=== PATIENT | female | born 1975 | race Two or more races ===

== ENCOUNTER 2017-01-19 17:14 | Emergency (ER) | payer MEDICAID ==
[2017-01-19 17:33] VITALS: BP 144/85
[2017-01-19 18:12] LABS: % BASOPHILS 1.3 % (0.0-2.0); % EOSINOPHILS 3.8 % (0.0-5.0); % LYMPHOCYTES 35.7 % (20.0-50.0); % MONOCYTES 10.3 % (2.0-10.0); % NEUTROPHILS 48.9 % (40.0-80.0); HEMATOCRIT 34.1 % (35.0-45.0); HEMOGLOBIN 11.3 gm/dL (11.7-15.5); MEAN CELL VOLUME 82.8 fl (81-100); MEAN CORPUSCULAR HEMOGLOBIN 27.5 pg (27.0-31.0); MEAN CORPUSCULAR HGB CONC 33.3 pg (28.0-36.0); MEAN PLATELET VOLUME 7.7 fl; NEUTROPHILE ABSOLUTE 3.1 Th/cmm (1.8-8.0); PLATELET COUNT 269 Th/cmm (150-400); RED BLOOD COUNT 4.11 Mil/cmm (3.80-5.10); RED CELL DISTRIBUTION WIDTH 14.9 % (11.5-20.0); WHITE BLOOD COUNT 6.2 Th/cmm (4.8-10.8)
[2017-01-19 18:29] LABS: ALB/GLOB RATIO 1.6 (1.0-1.8); ALKALINE PHOSPHATASE 47 U/L (34-104); ANION GAP 7.7 (7.0-16.0); BILIRUBIN,TOTAL 0.2 mg/dL (0.3-1.0); BUN - UREA NITROGEN 11 mg/dL (7-25); BUN/CREATININE RATIO 18.3; CALCIUM SERUM 9.7 mg/dL (8.6-10.3); CARBON DIOXIDE 29.2 mEq/L (21.0-31.0); CHLORIDE 104 mEq/L (98-107); CHOLESTEROL 183 mg/dL (<200); CREATININE - SERUM 0.6 mg/dL (0.6-1.2); GLUCOSE 173 mg/dL (70-105); POTASSIUM SERUM 3.9 mEq/L (3.5-5.1); SGOT 16 U/L (13-39); SGPT/ALT 18 U/L (7-52); SODIUM SERUM 137 mEq/L (136-145); TRIGLYCERIDES 164 mg/dL (<150)
[2017-01-19 18:38] LABS: INR 0.91 (0.5-1.4); PROTHROMBIN TIME (TEST) 9.5 SECONDS (9.5-11.5)
[2017-01-19 18:42] LABS: URINE BACTERIA MODERATE /hpf (NONE SEEN); URINE BILIRUBIN NEGATIVE (NEGATIVE); URINE BLOOD NEGATIVE (NEGATIVE); URINE COLOR YELLOW; URINE EPITHELIAL CELLS MODERATE /lpf (FEW); URINE GLUCOSE (UA) NEGATIVE (NEGATIVE); URINE KETONE NEGATIVE (NEGATIVE); URINE PH 7.5; URINE PROTEIN TRACE mg/dL (NEGATIVE); URINE RBC NONE SEEN /hpf (0-5); URINE UROBILINOGEN 0.2 E.U./dL (0.2 - 1.0); URINE WBC 0-2 /hpf (0-5)
[2017-01-19 18:43] LABS: URINE AMORPHOUS SEDIMENT MANY PHOSPHATES (NONE SEEN)
--- NOTE | 2017-01-19 19:44 | ED Physician Chart ---
Chief Complaint/HPI - Patient Information Date Seen:: 01/19/17 Time Seen:: 17:44 Chief Complaint:: headache History of Present Illness:: THIS IS A 41 YR OLD FEMALE WITH A HEADACHE ON THE LEFT POSTERIOR AREA AND SOME NECK TENDERNESS WITH RIGHT ARM RADIATING PAIN. SHE DENIES ANY OLD OR NEW TRAUMA. SHE ALSO STATES THAT SHE DYED HER HAIR. SHE DENIES HAVING ANY URI SYMPTOMS. SHE DENIES FEVER BUT ADMITS TO NAUSEA. SHE HAS HAD HEADACHES IN PAST BUT NOT LIKE THIS ONE. Allergies:: Allergies Allergy/AdvReac Type Severity Reaction Status Date / Time No Known Allergies Allergy Verified 05/10/16 19:27 Vitals:: Vital Signs - 8 hr 01/19/17 01/19/17 17:33 17:34 Temp 98.3 F HR 87 RR 16 BP 144/85 144/85 O2 Sat % 98 Historian:: Patient Review:: Nurse's Note Reviewed Review of Systems - Review of Systems General/Constitutional: No fever, No chills, No weight loss, No weakness, No diaphoresis, No edema, No loss of appetite Skin: No skin lesions, No rash, No bruising Head: Headache, No light-headedness Eyes: No loss of vision, No pain, No diplopia ENT: No earache, No nasal drainage, No sore throat, No tinnitus Neck: No neck pain, No swelling, No thyromegaly, No stiffness, Mass noted ( RIGHT POSTERIOR SCALP IN THE OCCIPITAL AREA.) Cardio Vascular: No chest pain, No palpitations, No PND, No orthopnea, No edema Pulmonary: No SOB, No cough, No sputum, No wheezing GI: No nausea, No vomiting, No diarrhea, No pain, No melena, No hematochezia, No constipation, No hematemesis G/U: No dysuria, No frequency, No hematuria Musculoskeletal: No bone or joint pain, No back pain, No muscle pain Endocrine: No polyuria, No polydipsia Psychiatric: No prior psych history, No depression, No anxiety, No suicidal ideation Hematopoietic: No bruising, No lymphadenopathy Allergic/Immuno: No urticaria, No angioedema Neurological: No syncope, No focal symptoms, No weakness, No paresthesia, No headache, No seizure, No dizziness, No confusion, No vertigo Past Medical History - Past Medical History Obtainable: Yes Past Medical History: DM, Asthma/COPD Family History: None Social History: Non Smoker, No Alcohol, No Drug Use Surgical History: Psychiatricy History: None Medication: Reviewed Family Medical History - Family Member Mother History Unknown: Yes Ethnicity: Living Status: Still Living Hx Family Cancer: No Hx Family Congestive Heart Failure: No Hx Family Hypertension: No Hx Family Stroke: No Hx Family Diabetes: No Hx Family Dementia: No Father History Unknown: Yes Ethnicity: Hx Family Cancer: Yes Physical Exam - Physical Examination General/Constitutional: Awake, Well-developed, well-nourished, Alert, No distress, GCS 15, Non-toxic appearing, Ambulatory Head: Atraumatic Other Head comments:: THERE IS TENDERNESS OF THE RIGHT OCCIPITAL AREA OF THE SCALP WITH ENLARGED TENDER LYMPH NODES THAT EXTENDS DOWN THE RIGHT POSTERIOR NECK AREA. Eyes: Lids, conjuctiva normal, PERRL, EOMI Skin: Nl inspection, No rash, No skin lesions, No ecchymosis, Well hydrated, No lymphadenopathy ENMT: External ears, nose nl, Nasal exam nl, Lips, teeth, gums nl Neck: Nontender, Full ROM w/o pain, No JVD, No nuchal rigidity, No bruit, No mass, No stridor Respiratory: Nl effort/Exclusion, Clear to Auscultation, No Wheeze/Rhonchi/Rales Cardio Vascular: RRR, No murmur, gallop, rubs, NL S1 S2 GI: No tenderness/rebounding/guarding, No organomegaly, No hernia, Normal BS's, Nondistended, No mass/bruits, No McBurney tenderness : No CVA tenderness Extremities: No tenderness or effusion, Full ROM, normal strength in all extremities, No edema, Normal digits & nails Neuro/Psych: Alert/oriented, DTR's symmetric, Normal sensory exam, Normal motor strength, Judgement/insight normal, Mood normal, Normal gait, No focal deficits Misc: normal gait, Normal back, No paraspinal tenderness Labs/Radiology/EKG Results - Lab Results Results: Laboratory Tests 01/19/17 01/19/17 01/19/17 17:53 17:53 17:53 WBC 6.2 RBC 4.11 Hgb 11.3 L Hct 34.1 L MCV 82.8 MCH 27.5 MCHC Differential 33.3 RDW 14.9 Plt Count 269 MPV 7.7 Neutrophils % 48.9 Lymphocytes % 35.7 Monocytes % 10.3 H Eosinophils % 3.8 Basophils % 1.3 PT 9.5 INR 0.91 Sodium Potassium Chloride Carbon Dioxide Anion Gap BUN Creatinine Est GFR ( Amer) Est GFR (Non-Af Amer) BUN/Creatinine Ratio Glucose Calcium Total Bilirubin AST ALT Alkaline Phosphatase Troponin I Total Protein Albumin Globulin Albumin/Globulin Ratio Triglycerides 164 H Cholesterol 183 LDL Cholesterol Direct 118 HDL Cholesterol 51 TSH Urine Source Urine Color Urine Clarity Urine pH Ur Specific [place] Urine Protein Urine Glucose (UA) Urine Ketones Urine Blood Urine Nitrate Urine Bilirubin Urine Urobilinogen Ur Leukocyte Esterase Urine RBC Urine WBC Ur Epithelial Cells Amorphous Sediment Urine Bacteria Urine Test 01/19/17 01/19/17 01/19/17 17:53 17:53 17:53 WBC RBC Hgb Hct MCV MCH MCHC Differential RDW Plt Count MPV Neutrophils % Lymphocytes % Monocytes % Eosinophils % Basophils % PT INR Sodium 137 Potassium 3.9 Chloride 104 Carbon Dioxide 29.2 Anion Gap 7.7 BUN 11 Creatinine 0.6 Est GFR ( Amer) > 60.0 Est GFR (Non-Af Amer) > 60.0 BUN/Creatinine Ratio 18.3 Glucose 173 H Calcium 9.7 Total Bilirubin 0.2 L AST 16 ALT 18 Alkaline Phosphatase 47 Troponin I < 0.01 L Total Protein 6.5 Albumin 4.0 Globulin 2.5 Albumin/Globulin Ratio 1.6 Triglycerides Cholesterol LDL Cholesterol Direct HDL Cholesterol TSH 0.82 Urine Source Urine Color Urine Clarity Urine pH Ur Specific [place] Urine Protein Urine Glucose (UA) Urine Ketones Urine Blood Urine Nitrate Urine Bilirubin Urine Urobilinogen Ur Leukocyte Esterase Urine RBC Urine WBC Ur Epithelial Cells Amorphous Sediment Urine Bacteria Urine Test 01/19/17 01/19/17 18:20 18:20 WBC RBC Hgb Hct MCV MCH MCHC Differential RDW Plt Count MPV Neutrophils % Lymphocytes % Monocytes % Eosinophils % Basophils % PT INR Sodium Potassium Chloride Carbon Dioxide Anion Gap BUN Creatinine Est GFR ( Amer) Est GFR (Non-Af Amer) BUN/Creatinine Ratio Glucose Calcium Total Bilirubin AST ALT Alkaline Phosphatase Troponin I Total Protein Albumin Globulin Albumin/Globulin Ratio Triglycerides Cholesterol LDL Cholesterol Direct HDL Cholesterol TSH Urine Source CLEAN C Urine Color YELLOW Urine Clarity SLIGHT HAZY Urine pH 7.5 Ur Specific [place] 1.020 Urine Protein TRACE Urine Glucose (UA) NEGATIVE Urine Ketones NEGATIVE Urine Blood NEGATIVE Urine Nitrate NEGATIVE Urine Bilirubin NEGATIVE Urine Urobilinogen 0.2 Ur Leukocyte Esterase NEGATIVE Urine RBC NONE SEEN Urine WBC 0-2 Ur Epithelial Cells MODERATE Amorphous Sediment MANY PHOSPHATES Urine Bacteria MODERATE Urine Test NEGATIVE - Radiology Results Results: CT SCAN OF THE HEAD = NAD CT SCAN OF THE NECK = NAD ED Septic Shock - . Is Septic Shock (SBP<90, OR Lactate>4 mmol\L) present?: No - <6hrs of presentation: Vital Signs: Vital Signs - 8 hr 01/19/17 01/19/17 17:33 17:34 Temp 98.3 F HR 87 RR 16 BP 144/85 144/85 O2 Sat % 98 Reassessment (Disposition) - Reassessment Reassessment Condition:: Improved - Diagnosis Diagnosis:: HEADACHE SCALP ADENOPATHY CERVICAL ARTHRITIS - Aftercare/Follow up Instructions Aftercare/Follow-Up Instructions:: Counseled pt regarding lab results/diagnosis & need follow up, Refer to Discharge Instructions, Counseled pt & family regarding lab results/diagnosis & need follow up - Patient Disposition Discharge/Transfer:: Home Condition at Disposition:: Improved ED Discharge Plan - Patient Disposition Admit/Discharge/Transfer: PT DISCHARGED HOME Condition at Disposition: Improved
--- NOTE | 2017-01-20 10:45 | Diagnostic Imaging Report ---
CT scan of the brain without contrast History: Headache Total DLP equals 560 CTDI equals 33.5 Axial sections were obtained from the base of the skull to the vertex. There is a normal ventricular system size. No focal parenchymal lesions are seen. No evidence of any mass effect or shift of midline structures. No extra-axial masses or abnormal fluid collections. Impression: Negative examination
--- NOTE | 2017-01-20 10:51 | Diagnostic Imaging Report ---
CT scan cervical spine HISTORY: Pain Total DLP equals 547 CTDI equals 28.9 Axial sections were obtained through the cervical spine. Additional sagittal and coronal reformatted images are provided. There is straightening of the cervical lordosis that may be associated with spasm. Degenerative spur formation noted about the endplates of C4-5 and C5-6. Spur formation results in a mild extradural indentation on the anterior spinal canal at C5-6. No acute abnormalities. No fractures. The prevertebral soft tissues appear normal. IMPRESSION: 1. No acute abnormalities 2. Degenerative changes most pronounced at C5-6
== END 2017-01-19 20:50 | disposition home or self-care (01) ==
LOC: ER 17:14
DX: M46.92 Unspecified inflammatory spondylopathy, cervical region (principal); R51 Headache; R59.9 Enlarged lymph nodes, unspecified; E11.9 Type 2 diabetes mellitus without complications; J44.9 Chronic obstructive pulmonary disease, unspecified; J45.909 Unspecified asthma, uncomplicated
CPT/HCPCS: 36415-UA; 70450-TC; 72125-TC; 80053-TC; 80061-TC; 81001-TC; 81025-TC; 84443-TC; 84484-TC; 85025-TC; 85610-TC; 86592-TC

== ENCOUNTER 2017-05-11 01:28 | Emergency (ER) | payer MEDICAID ==
--- NOTE | 2017-05-11 02:17 | ED Physician Chart ---
Chief Complaint/HPI - Patient Information Date Seen:: 05/11/17 Time Seen:: 02:00 Chief Complaint:: headache History of Present Illness:: Yesterday at 3 PM this patient developed a right-sided headache which became diffuse. She has photophobia. Headache is gradually increasing in severity. Patient has a history of headaches which are sometimes right-sided and sometimes left-sided. Allergies:: Allergies Allergy/AdvReac Type Severity Reaction Status Date / Time No Known Allergies Allergy Verified 05/10/16 19:27 Vitals:: Vital Signs - 8 hr 05/11/17 01:40 Temp 98.0 F HR 80 RR 20 BP 141/89 O2 Sat % 97 Historian:: Patient, Family Member Review:: Nurse's Note Reviewed Review of Systems - Review of Systems General/Constitutional: No fever, No chills Skin: No skin lesions Head: Headache Eyes: Other (photophobia) ENT: No earache Neck: No neck pain, No swelling Cardio Vascular: No chest pain, No palpitations, No PND Pulmonary: No SOB, No cough GI: No nausea, No vomiting G/U: No dysuria Musculoskeletal: No bone or joint pain Endocrine: No polyuria Psychiatric: No prior psych history Hematopoietic: No lymphadenopathy Allergic/Immuno: No urticaria Neurological: No syncope, No focal symptoms Past Medical History - Past Medical History Past Medical History: DM, Asthma/COPD Family History: None Social History: Non Smoker, No Alcohol Surgical History: Psychiatricy History: None Medication: Reviewed Family Medical History - Family Member Mother History Unknown: Yes Ethnicity: Living Status: Still Living Hx Family Cancer: No Hx Family Congestive Heart Failure: No Hx Family Hypertension: No Hx Family Stroke: No Hx Family Diabetes: No Hx Family Dementia: No Father History Unknown: Yes Ethnicity: Hx Family Cancer: Yes Physical Exam - Physical Examination General/Constitutional: Awake, Well-developed, well-nourished, Alert, No distress Head: Atraumatic Eyes: Lids, conjuctiva normal, PERRL Skin: Nl inspection, No rash, No skin lesions, No ecchymosis ENMT: External ears, nose nl, Nasal exam nl, Lips, teeth, gums nl Neck: No nuchal rigidity Respiratory: Nl effort/Exclusion, Clear to Auscultation Cardio Vascular: RRR GI: No tenderness/rebounding/guarding, No organomegaly, No hernia : No CVA tenderness Neuro/Psych: Judgement/insight normal, No focal deficits Assessment - Assessment General Assessment: Headache is not improved at O240. ED Septic Shock - . Is Septic Shock (SBP<90, OR Lactate>4 mmol\L) present?: No - <6hrs of presentation: Vital Signs: Vital Signs - 8 hr 05/11/17 01:40 Temp 98.0 F HR 80 RR 20 BP 141/89 O2 Sat % 97 Reassessment (Disposition) - Reassessment Reassessment:: Elbow 320 patient's vomiting probably from the Dilaudid Reassessment Condition:: Improved - Diagnosis Diagnosis:: Migraine headache - Patient Disposition Discharge/Transfer:: Home Condition at Disposition:: Improved
[2017-05-11] MEDS ORDERED: HYDROmorphone 2 mg/mL 1mL Vial IM STA (02:42)
[2017-05-11] MEDS ORDERED: HYDROmorphone 2 mg/mL 1mL Vial ONE (02:54)
[2017-05-11] MEDS ORDERED: IOHEXOL 300MG/ML 100 ML VIAL ONE (11:38)
[2017-05-11] MEDS ORDERED: Morphine Sulfate 2 mg/mL 1mL Syr ONE (14:03)
== END 2017-05-11 03:45 | disposition home or self-care (01) ==
LOC: ER 01:28
DX: G43.909 Migraine, unspecified, not intractable, without status migrainosus (principal); E11.9 Type 2 diabetes mellitus without complications; J44.9 Chronic obstructive pulmonary disease, unspecified; J45.909 Unspecified asthma, uncomplicated
CPT/HCPCS: 99283; 96372; Q0162; J2270; J1170; J7030; Q9967; Z7502

== ENCOUNTER 2017-05-11 10:17 | Inpatient (IN) | payer MEDICAID ==
--- NOTE | 2017-05-11 11:07 | ED Physician Chart ---
Chief Complaint/HPI - Patient Information Date Seen:: 05/11/17 Time Seen:: 10:40 Chief Complaint:: HEADACHE History of Present Illness:: THIS IS A 41 YO FEMALE WHO PRESENTS WITH A HEADACHE THAT STARTED YESTERDAY ASSOCIATED WITH VOMITING. THIS PATIENT STATES THAT SHE HAS SOME RIGHT LOWER QUADRANT ABDOMINAL PAIN ASSOCIATED WITH NAUSEA AND VOMITING YESTERDAY. Allergies:: Allergies Allergy/AdvReac Type Severity Reaction Status Date / Time No Known Allergies Allergy Verified 05/10/16 19:27 Vitals:: Vital Signs - 8 hr 05/11/17 10:29 Temp 98.1 F HR 83 RR 16 BP 157/104 O2 Sat % 96 Historian:: Patient, Family Member (DAUGHTER) Review:: Nurse's Note Reviewed, Old Chart Reviewed Family Medical History - Family Member Mother History Unknown: Yes Ethnicity: Living Status: Still Living Hx Family Cancer: No Hx Family Coronary Artery Disease: No Hx Family Congestive Heart Failure: No Hx Family Hypertension: No Hx Family Stroke: No Hx Family Diabetes: No Hx Family Seizures: No Hx Family Dementia: No Hx Family AIDS: No Hx Family COPD: No Father History Unknown: Yes Ethnicity: Hx Family Cancer: No Hx Family Coronary Artery Disease: No Hx Family Congestive Heart Failure: No Hx Family Hypertension: No Hx Family Stroke: No Hx Family Seizures: No Hx Family Dementia: No Hx Family COPD: No Labs/Radiology/EKG Results - Lab Results Results: Abnormal Lab Results 05/11/17 05/11/17 05/11/17 10:45 10:45 11:00 WBC RBC Hgb Hct MCV MCH MCHC Differential RDW Plt Count MPV Neutrophils % Lymphocytes % Monocytes % Eosinophils % Basophils % PT 9.7 INR 0.93 PTT (Actin FS) 22.5 L Sodium Potassium Chloride Carbon Dioxide Anion Gap BUN Creatinine Est GFR ( Amer) Est GFR (Non-Af Amer) BUN/Creatinine Ratio Glucose Hemoglobin A1c % Calcium Total Bilirubin AST ALT Alkaline Phosphatase Troponin I Total Protein Albumin Globulin Albumin/Globulin Ratio Triglycerides Cholesterol LDL Cholesterol Direct HDL Cholesterol TSH Urine Source CLEAN C Urine Color YELLOW Urine Clarity SL. CLOUDY Urine pH 7.0 Ur Specific [place] 1.020 Urine Protein 100 H Urine Glucose (UA) >=1000 H Urine Ketones TRACE Urine Blood NEGATIVE Urine Nitrate NEGATIVE Urine Bilirubin NEGATIVE Urine Urobilinogen 0.2 Ur Leukocyte Esterase NEGATIVE Urine RBC 0-1 Urine WBC 0-2 Ur Epithelial Cells FEW Urine Bacteria OCCASIONAL Urine Test NEGATIVE 05/11/17 05/11/17 05/11/17 11:00 11:00 11:00 WBC 8.4 D RBC 4.35 Hgb 11.5 L Hct 35.1 MCV 80.7 L MCH 26.4 L MCHC Differential 32.7 RDW 15.1 Plt Count 308 MPV 7.8 Neutrophils % 71.3 Lymphocytes % 21.5 Monocytes % 5.9 Eosinophils % 0.6 Basophils % 0.7 PT INR PTT (Actin FS) Sodium 137 Potassium 3.9 Chloride 102 Carbon Dioxide 29.0 Anion Gap 9.9 BUN 13 Creatinine 0.6 Est GFR ( Amer) > 60.0 Est GFR (Non-Af Amer) > 60.0 BUN/Creatinine Ratio 21.7 Glucose 310 H Hemoglobin A1c % Calcium 9.7 Total Bilirubin 0.4 AST 14 ALT 16 Alkaline Phosphatase 58 Troponin I Total Protein 7.2 Albumin 4.3 Globulin 2.9 Albumin/Globulin Ratio 1.5 Triglycerides 100 Cholesterol 233 H LDL Cholesterol Direct 165 HDL Cholesterol 57 TSH Urine Source Urine Color Urine Clarity Urine pH Ur Specific [place] Urine Protein Urine Glucose (UA) Urine Ketones Urine Blood Urine Nitrate Urine Bilirubin Urine Urobilinogen Ur Leukocyte Esterase Urine RBC Urine WBC Ur Epithelial Cells Urine Bacteria Urine Test 05/11/17 05/11/17 05/11/17 11:00 11:00 11:00 WBC RBC Hgb Hct MCV MCH MCHC Differential RDW Plt Count MPV Neutrophils % Lymphocytes % Monocytes % Eosinophils % Basophils % PT INR PTT (Actin FS) Sodium Potassium Chloride Carbon Dioxide Anion Gap BUN Creatinine Est GFR ( Amer) Est GFR (Non-Af Amer) BUN/Creatinine Ratio Glucose Hemoglobin A1c % 9.8 H Calcium Total Bilirubin AST ALT Alkaline Phosphatase Troponin I 0.01 Total Protein Albumin Globulin Albumin/Globulin Ratio Triglycerides Cholesterol LDL Cholesterol Direct HDL Cholesterol TSH 0.56 Urine Source Urine Color Urine Clarity Urine pH Ur Specific [place] Urine Protein Urine Glucose (UA) Urine Ketones Urine Blood Urine Nitrate Urine Bilirubin Urine Urobilinogen Ur Leukocyte Esterase Urine RBC Urine WBC Ur Epithelial Cells Urine Bacteria Urine Test - Radiology Results Results: CT SCAN OF THE ABDOMEN = DIVERTICULOSIS, POSSIBLE EARLY APPENDICITIS. 6MM LESION OF THE LEFT LUNG, Assessment - Assessment General Assessment: HEADACHES ABDOMINAL PAIN DIABETES MELLITUS UNCONTROLLED ANEMIA LEFT LOWER LOBE LUNG LESION DIVERTICULOSIS ED Septic Shock - . Is Septic Shock (SBP<90, OR Lactate>4 mmol\L) present?: No - <6hrs of presentation: Vital Signs: Vital Signs - 8 hr 05/11/17 10:29 Temp 98.1 F HR 83 RR 16 BP 157/104 O2 Sat % 96 Reassessment (Disposition) - Reassessment Reassessment Condition:: Improved - Diagnosis Diagnosis:: ABDOMINAL PAIN DIABETES MELLITUS UNCONTROLLED HEADACHES DIVERTICULOSIS LEFT LOWER LOBE LUNG LESION ANEMIA - Patient Disposition Discharge/Transfer:: Acute Care w/in this hosp Admitted to:: Telemetry Admitting Medical Physician:: Gibran Kruse ED Discharge Plan - Patient Disposition Admit/Discharge/Transfer: Acute Care w/in this hosp Condition at Disposition: Guarded
[2017-05-11 11:08] LABS: URINE BILIRUBIN NEGATIVE (NEGATIVE); URINE BLOOD NEGATIVE (NEGATIVE); URINE GLUCOSE (UA) >=1000 mg/dL (NEGATIVE); URINE KETONE TRACE mg/dL (NEGATIVE); URINE PROTEIN 100 mg/dL (NEGATIVE); URINE UROBILINOGEN 0.2 E.U./dL (0.2 - 1.0)
[2017-05-11 11:09] LABS: URINE COLOR YELLOW
[2017-05-11 11:11] LABS: URINE BACTERIA OCCASIONAL /hpf (NONE SEEN); URINE EPITHELIAL CELLS FEW /lpf (FEW); URINE RBC 0-1 /hpf (0-5); URINE WBC 0-2 /hpf (0-5)
[2017-05-11 11:12] LABS: % BASOPHILS 0.7 % (0.0-2.0); % EOSINOPHILS 0.6 % (0.0-5.0); % LYMPHOCYTES 21.5 % (20.0-50.0); % MONOCYTES 5.9 % (2.0-10.0); % NEUTROPHILS 71.3 % (40.0-80.0); HEMATOCRIT 35.1 % (35.0-45.0); HEMOGLOBIN 11.5 gm/dL (11.7-15.5); MEAN CELL VOLUME 80.7 fl (81-100); MEAN CORPUSCULAR HEMOGLOBIN 26.4 pg (27.0-31.0); MEAN CORPUSCULAR HGB CONC 32.7 pg (28.0-36.0); MEAN PLATELET VOLUME 7.8 fl; NEUTROPHILE ABSOLUTE 5.9 Th/cmm (1.8-8.0); PLATELET COUNT 308 Th/cmm (150-400); RED BLOOD COUNT 4.35 Mil/cmm (3.80-5.10); RED CELL DISTRIBUTION WIDTH 15.1 % (11.5-20.0)
[2017-05-11 11:14] LABS: WHITE BLOOD COUNT 8.4 Th/cmm (4.8-10.8)
[2017-05-11 11:17] LABS: INR 0.93 (0.5-1.4); PROTHROMBIN TIME (TEST) 9.7 SECONDS (9.5-11.5)
[2017-05-11 11:20] LABS: ALB/GLOB RATIO 1.5 (1.0-1.8); ALKALINE PHOSPHATASE 58 U/L (34-104); ANION GAP 9.9 (7.0-16.0); BILIRUBIN,TOTAL 0.4 mg/dL (0.3-1.0); BUN - UREA NITROGEN 13 mg/dL (7-25); BUN/CREATININE RATIO 21.7; CALCIUM SERUM 9.7 mg/dL (8.6-10.3); CHLORIDE 102 mEq/L (98-107); CHOLESTEROL 233 mg/dL (<200); CREATININE - SERUM 0.6 mg/dL (0.6-1.2); GLUCOSE 310 mg/dL (70-105); POTASSIUM SERUM 3.9 mEq/L (3.5-5.1); SGOT 14 U/L (13-39); SGPT/ALT 16 U/L (7-52); SODIUM SERUM 137 mEq/L (136-145); TRIGLYCERIDES 100 mg/dL (<150)
--- NOTE | 2017-05-11 12:03 | Diagnostic Imaging Report ---
CHEST X-RAY: AP view INDICATION: Chest pain COMPARISON: None FINDINGS: Mild chronic changes are noted. There is no focal consolidation or pleural effusions The heart is normal in size. The osseous structures demonstrate no acute abnormalities. IMPRESSION: No focal airspace consolidation identified.
--- NOTE | 2017-05-11 12:21 | Diagnostic Imaging Report ---
Head CT without intravenous contrast Indication: Headache Comparison: 01/19/2017 Technique: Axial images were obtained from the vertex to the skull base without IV contrast. Coronal reconstructions were made. Total DLP: 635 [id number] FINDINGS: Images of the brain obtained without contrast demonstrate no acute hemorrhage. No mass lesions identified. The ventricles and basal cisterns are patent. The baez-white matter differentiation is preserved. There is no mass effect or midline shift. Bilateral basal ganglia calcifications are noted. No skull fractures identified. No soft tissue swelling. The paranasal sinuses are clear. IMPRESSION: No acute intracranial abnormality.
--- NOTE | 2017-05-11 12:28 | Diagnostic Imaging Report ---
CT abdomen and pelvis with intravenous contrast Indication: Right lower quadrant pain Comparison: None, Technique: Axial images were obtained from the lung bases to the bilateral proximal femurs with IV contrast. Coronal reconstructions were made. total DLP: 769, CTDI 15.3 FINDINGS: Atelectatic changes changes of the lung bases are noted with 6 mm opacity seen adjacent to the anterior aspect of the left lung base. There is fatty infiltration of the liver. No evidence of focal hepatic, splenic, or pancreatic gland lesions. Pancreatic gland atrophy is noted. Minimal haziness of the peripancreatic fat planes is noted. No evidence of hydronephrosis or focal renal lesions. Mildly prominent uterus is noted. There is a tubular structure along the left lower quadrant possibly representing hydrosalpinx. 1 cm low-density focus along the anterior aspect of the uterus is noted. Diverticulosis is noted without evidence of diverticulitis. The appendix is at the upper limits of normal in size. No evidence of significant surrounding inflammatory change. No evidence of free fluid or free air. Osseous structures demonstrate no acute abnormalities. IMPRESSION: The appendix is at the upper limits of normal in size. No evidence of significant surrounding inflammatory change. Very early acute appendicitis is considered less likely, but cannot be completely excluded in the appropriate clinical setting. Please correlate with clinical findings. If indicated a follow-up CT examination in 24 hours may be obtained for further assessment. Mild haziness of the pancreatic gland margins. Changes associated with mild pancreatitis cannot be excluded. Please correlate with clinical findings. Pancreatic gland atrophy is also noted. Diverticulosis without evidence of diverticulitis. Prominent tubular structure of the left adnexa. Hydrosalpinx cannot be excluded. Ultrasound would further clarify. Mildly prominent uterus with 1 cm low-density lesion along the anterior aspect possibly representing a small fibroid. There are also probable small nabothian cysts. Hepatic steatosis. 6 mm opacity left lung base nonspecific and may be due to subsegmental atelectasis versus scarring. Short-term follow-up may be obtained to for further assessment/moderate and rule out less likelihood of a small pulmonary nodule.
[2017-05-11] MEDS ORDERED: Sodium Chloride 0.45% 500 ML IV ONE (12:58)
[2017-05-11] MEDS ORDERED: cefTRIAXone 1 GM in Sodium Chloride 0.9% 50 ML IV ONE (12:59)
--- NOTE | 2017-05-11 15:23 | ED Physician Chart ---
History of Present Illness - General Chief Complaint: Headache Stated Complaint: HEADACHE Source: Patient - History of Present Illness Timing/Duration: Resolved prior to arrival Quality: A Abdominal Pain Onset Location: E Pain Radiation: epigastric Modifying Factors: analgesics, urinating Associated Symptoms: denies symptoms (patient comfortable without symptoms compatible for acute appendicitis) Allergies/Adverse Reactions: Allergies No Known Allergies Allergy (Verified 05/10/16 19:27) Home Medications: Ambulatory Orders metFORMIN [Glucophage] 1,000 mg PO BID #60 tab 11/29/14 Albuterol Sulfate [Proventil Hfa*] 0.09 mg IH Q4H PRN 03/08/16 Glipizide [Glucotrol] 10 mg PO BID 03/08/16 Lisinopril [Prinivil] 5 mg PO DAILY 04/05/16 Azithromycin [Zithromax] 250 mg PO DAILY #6 tab 05/10/16 Past History - Social History Smoking Status: Never smoker Hx Alcohol Use: No Hx Drug Use: No Family Medical History - Family Member Mother History Unknown: Yes Ethnicity: Living Status: Still Living Hx Family Cancer: No Hx Family Coronary Artery Disease: No Hx Family Congestive Heart Failure: No Hx Family Hypertension: No Hx Family Stroke: No Hx Family Diabetes: No Hx Family Seizures: No Hx Family Dementia: No Hx Family AIDS: No Hx Family COPD: No Father History Unknown: Yes Ethnicity: Hx Family Cancer: No Hx Family Coronary Artery Disease: No Hx Family Congestive Heart Failure: No Hx Family Hypertension: No Hx Family Stroke: No Hx Family Seizures: No Hx Family Dementia: No Hx Family COPD: No Physical Exam - Physical Exam General Appearance: no apparent distress Neck: FUL Respiratory: chest non-tender, lungs clear Cardiovascular/Chest: normal peripheral pulses, regular rate, rhythm Gastrointestinal/Abdominal: Normal bowel sounds, Non tender Rectal Exam: deferred Skin Exam: normal color, warm/dry Comments: NO PAIN IN THE RIGHT LOWER QUADRANT Progress - EKG/XRAY/CT CT: no inflammatory changes around the appendix or cecum area, not supportive - Consult/PCP Consult Reason/Comments: r/o acute appendicitis ED Discharge Plan - Patient Disposition Admit/Discharge/Transfer: Acute Care w/in this hosp Condition at Disposition: Guarded Consult Note - Consult Note Service Date: 05/11/17 Referring Physician: Gibran Grayson Note: PHYSICIAN Consultation Note: Date of Admission: Purpose of Consultation: Chief Complaint: History of Present Illness: Patient OTONIEL MILLER was admitted to location Emergency Department with HEADACHE. Past Medical History: Allergies Allergy/AdvReac Type Severity Reaction Status Date / Time No Known Allergies Allergy Verified 05/10/16 19:27 Vital Signs Temp 98 F 05/11/17 12:32 Pulse 80 05/11/17 12:32 Resp 16 05/11/17 12:32 BP 157/104 05/11/17 12:32 Pulse Ox 97 05/11/17 12:32 Intake & Output 05/10/17 05/11/17 05/11/17 18:59 06:59 18:59 Weight (lbs) 215 lb 215 lb Laboratory Results - last 24 hr 05/11/17 05/11/17 05/11/17 10:45 10:45 11:00 WBC RBC Hgb Hct MCV MCH MCHC Differential RDW Plt Count MPV Neutrophils % Lymphocytes % Monocytes % Eosinophils % Basophils % PT 9.7 INR 0.93 PTT (Actin FS) 22.5 L Sodium Potassium Chloride Carbon Dioxide Anion Gap BUN Creatinine Est GFR ( Amer) Est GFR (Non-Af Amer) BUN/Creatinine Ratio Glucose Hemoglobin A1c % Calcium Total Bilirubin AST ALT Alkaline Phosphatase Troponin I Total Protein Albumin Globulin Albumin/Globulin Ratio Triglycerides Cholesterol LDL Cholesterol Direct HDL Cholesterol TSH Urine Source CLEAN C Urine Color YELLOW Urine Clarity SL. CLOUDY Urine pH 7.0 Ur Specific [place] 1.020 Urine Protein 100 H Urine Glucose (UA) >=1000 H Urine Ketones TRACE Urine Blood NEGATIVE Urine Nitrate NEGATIVE Urine Bilirubin NEGATIVE Urine Urobilinogen 0.2 Ur Leukocyte Esterase NEGATIVE Urine RBC 0-1 Urine WBC 0-2 Ur Epithelial Cells FEW Urine Bacteria OCCASIONAL Urine Test NEGATIVE 05/11/17 05/11/17 05/11/17 11:00 11:00 11:00 WBC 8.4 D RBC 4.35 Hgb 11.5 L Hct 35.1 MCV 80.7 L MCH 26.4 L MCHC Differential 32.7 RDW 15.1 Plt Count 308 MPV 7.8 Neutrophils % 71.3 Lymphocytes % 21.5 Monocytes % 5.9 Eosinophils % 0.6 Basophils % 0.7 PT INR PTT (Actin FS) Sodium 137 Potassium 3.9 Chloride 102 Carbon Dioxide 29.0 Anion Gap 9.9 BUN 13 Creatinine 0.6 Est GFR ( Amer) > 60.0 Est GFR (Non-Af Amer) > 60.0 BUN/Creatinine Ratio 21.7 Glucose 310 H Hemoglobin A1c % Calcium 9.7 Total Bilirubin 0.4 AST 14 ALT 16 Alkaline Phosphatase 58 Troponin I Total Protein 7.2 Albumin 4.3 Globulin 2.9 Albumin/Globulin Ratio 1.5 Triglycerides 100 Cholesterol 233 H LDL Cholesterol Direct 165 HDL Cholesterol 57 TSH Urine Source Urine Color Urine Clarity Urine pH Ur Specific [place] Urine Protein Urine Glucose (UA) Urine Ketones Urine Blood Urine Nitrate Urine Bilirubin Urine Urobilinogen Ur Leukocyte Esterase Urine RBC Urine WBC Ur Epithelial Cells Urine Bacteria Urine Test 05/11/17 05/11/17 05/11/17 11:00 11:00 11:00 WBC RBC Hgb Hct MCV MCH MCHC Differential RDW Plt Count MPV Neutrophils % Lymphocytes % Monocytes % Eosinophils % Basophils % PT INR PTT (Actin FS) Sodium Potassium Chloride Carbon Dioxide Anion Gap BUN Creatinine Est GFR ( Amer) Est GFR (Non-Af Amer) BUN/Creatinine Ratio Glucose Hemoglobin A1c % 9.8 H Calcium Total Bilirubin AST ALT Alkaline Phosphatase Troponin I 0.01 Total Protein Albumin Globulin Albumin/Globulin Ratio Triglycerides Cholesterol LDL Cholesterol Direct HDL Cholesterol TSH 0.56 Urine Source Urine Color Urine Clarity Urine pH Ur Specific [place] Urine Protein Urine Glucose (UA) Urine Ketones Urine Blood Urine Nitrate Urine Bilirubin Urine Urobilinogen Ur Leukocyte Esterase Urine RBC Urine WBC Ur Epithelial Cells Urine Bacteria Urine Test Home Medication Medication Instructions Recorded Type metFORMIN [Glucophage] 1,000 mg PO BID #60 tab 11/29/14 Rx Albuterol Sulfate [Proventil Hfa*] 0.09 mg IH Q4H PRN 03/08/16 History Glipizide [Glucotrol] 10 mg PO BID 03/08/16 History Lisinopril [Prinivil] 5 mg PO DAILY 04/05/16 History Azithromycin [Zithromax] 250 mg PO DAILY #6 tab 05/10/16 Rx Current Medications Generic Name Dose Route Start Last Admin Trade Name Freq PRN Reason Stop Dose Admin Sodium Chloride 500 mls @ 100 mls/hr 05/11/17 12:58 05/11/17 13:59 Nacl 0.45% IV 05/11/17 17:57 100 mls/hr .Q5H ONE Administration Ceftriaxone Sodium 1 gm/ 50 mls @ 100 mls/hr 05/11/17 12:59 05/11/17 14:00 Sodium Chloride IV 05/11/17 13:28 100 mls/hr X1 ONE Administration Review of Systems: A 12 point ROS was reviewed with the pertinent positive and negatives noted in the HPI. Social History Smoking Status Never smoker Physical Exam: General: HEENT: Cardio: Respiratory: Abdominal: Genital/Urinary: Extremities: Neurological: Assessment: Plan: Amber Ribeiro Raffael [id number] Patient seen and examined and found to have no abdominal pain and was able to be managed medically for abdominal discomfort that is not present any longer at exmination in the ER> Plan to not perform surgery at this time with physical exam ,radiologic findings and hematologic findings not supportive of acute appendicitis.
[2017-05-11] MEDS ORDERED: Sodium Chloride 0.9% 1,000 ML IV SCH (19:37)
--- NOTE | 2017-05-11 20:55 | History & Physical ---
ADMIT DATE: 05/11/2017 PATIENT IDENTIFICATION: A 41-year-old female. CHIEF COMPLAINT: Headache. HISTORY OF PRESENT ILLNESS: A 41-year-old moderately obese, diabetic, hypertensive, followed by [facility] in the city of ____, going in and out of the hospital for evaluation of headache and abdominal pain. Reviewing the Emergency Room visit, the patient has come to the Emergency Room multiple times for headache evaluation. The patient was given multiple times pain medication and the patient was discharged. At this time, the patient underwent CT scan of the head which was unremarkable. The patient was also noted with abnormal CT scan of the abdomen and pelvis and I was advised to admit this patient. Upon further questioning, she says that she has the headache for last 33 years and the patient states that headache associated with nausea and photophobia. The patient's headache usually gerry-cranial as the patient stated that it has relationship with mensuration as well as sleeping less and getting more depressed. The patient's family member also has a migraine headache history. The patient has never been given appropriate medications for her migraine headache as per patient's account. PAST MEDICAL HISTORY: Remarkable for, 1.Diabetes. 2.Hypertension. 3.Obesity. 4.Chronic headache. MEDICATIONS AT HOME: The patient is taking glipizide, Januvia, metformin as well as lisinopril, azithromycin and ____. ALLERGIES: The patient is not allergic to medications. SOCIAL HISTORY: The patient lives with the family. No smoking cigarette, alcohol or drug use. FAMILY MEDICAL HISTORY: Remarkable for diabetes as well as cancer. REVIEW OF SYSTEMS: The patient denies any fever or chills. Denies any double vision. Denies any dysphagia. Denies any chest pain, denies any shortness of breath, denies any hematemesis. Denies any hematuria, hematochezia, melena. No history of any seizure or syncopal episode. No history of any tingling, numbness or any weakness of upper or lower extremity. GYNECOLOGIC HISTORY: Her periods are heavy according to her. PHYSICAL EXAMINATION: GENERAL: The patient is alert, awake, oriented, lying in the bed without any acute distress. VITAL SIGNS: Temperature 98, pulse is 80, respiratory rate is 18, blood pressure is 157/104. HEENT: Normocephalic, atraumatic. Extraocular muscles are intact. Tongue was pink and coated. Poor dentition noted. No oral lesion, no exudate. No sinus tenderness. External auditory canal, tympanic members are well visualized. NECK: Supple, no JVD, no hepatojugular reflex. No lymphadenopathy, thyromegaly or carotid bruit. HEART: Both heart sounds are regular. No S3, no S4, no murmur. CHEST: Lung equal in expansion, no wheezing, no crackles. ABDOMEN: Soft. No guarding, no rigidity. Liver, spleen palpable. No palpable mass. EXTREMITIES: No edema, no cyanosis, no clubbing. Pulses are +2. No calf tenderness noted. NEUROLOGIC: Alert, awake, oriented to time, place, person, 2-12 cranial nerves are intact. Power in upper and lower extremities, 5+. Sensation to touch are intact. [place] in both toes are going down. No cerebral sign. AVAILABLE DIAGNOSTIC DATA: performed in the Emergency Room are reviewed. CLINICAL IMPRESSION: 1.Headache for last 33 years, going in and out of the Emergency Room, clinically it looks patient has a migraine headache based on the CT head being negative and her history more suggestive of migraine than anything else. 2.Uncontrolled diabetes mellitus. 3.Abnormal CT, abdomen and pelvis with no GI or symptoms. 4.Obesity. 5.Hypertension. 6.Questionable 6 mm lung spot on CT abdomen and pelvis. Workup can be done as an outpatient, less than 1 cm, does not need acute intervention and acute care setting. PLAN: The patient will be admitted to Med/Surg floor at this time to control the headache. IV fluid will be given. General Surgery consultation was requested and seen by ____, not a surgical candidate. Since patient has no GI or symptoms, we will start the patient on p.o. diet. Symptoms management will be given, diabetes management provided. Appropriate home medicine will be reconciliated and once the patient's headache is stabilized and blood sugars are under control, the patient will be discharged to the community with outpatient followup with primary care physician. JOB# [id number]
[2017-05-11] MEDS: INSULIN ASPART SLIDING SCALE 100 UNITS/ML UNIT SUBQ SCH (22:11)
[2017-05-12] MEDS ORDERED: Morphine Sulfate 2 mg/mL 1mL Syr IVP PRN (00:42)
[2017-05-12] MEDS: INSULIN ASPART SLIDING SCALE 100 UNITS/ML UNIT SUBQ SCH ×3 (06:53→17:05)
[2017-05-12] MEDS: APAP 325mg/Butalbital 50mg/Caff 40mg Tab PO PRN ×2 (07:01→14:14)
[2017-05-12 07:15] LABS: ALB/GLOB RATIO 1.5 (1.0-1.8); ALKALINE PHOSPHATASE 46 U/L (34-104); ANION GAP 6.5 (7.0-16.0); BILIRUBIN,TOTAL 0.3 mg/dL (0.3-1.0); BUN - UREA NITROGEN 15 mg/dL (7-25); CALCIUM SERUM 8.9 mg/dL (8.6-10.3); CARBON DIOXIDE 28.4 mEq/L (21.0-31.0); CHLORIDE 104 mEq/L (98-107); CREATININE - SERUM 0.6 mg/dL (0.6-1.2); GLUCOSE 303 mg/dL (70-105); POTASSIUM SERUM 3.9 mEq/L (3.5-5.1); SGOT 11 U/L (13-39); SGPT/ALT 12 U/L (7-52); SODIUM SERUM 135 mEq/L (136-145)
[2017-05-12 07:49] LABS: % BASOPHILS 0.7 % (0.0-2.0); % EOSINOPHILS 3.8 % (0.0-5.0); % LYMPHOCYTES 40.3 % (20.0-50.0); % MONOCYTES 9.9 % (2.0-10.0); % NEUTROPHILS 45.3 % (40.0-80.0); HEMATOCRIT 32.1 % (35.0-45.0); HEMOGLOBIN 10.6 gm/dL (11.7-15.5); MEAN CELL VOLUME 81.9 fl (81-100); MEAN PLATELET VOLUME 8.2 fl; NEUTROPHILE ABSOLUTE 2.6 Th/cmm (1.8-8.0); PLATELET COUNT 268 Th/cmm (150-400); RED BLOOD COUNT 3.92 Mil/cmm (3.80-5.10); RED CELL DISTRIBUTION WIDTH 14.8 % (11.5-20.0)
[2017-05-12 08:51] LABS: WHITE BLOOD COUNT 5.3 Th/cmm (4.8-10.8)
[2017-05-12] MEDS ORDERED: VTE Chemical Prophylaxis Screen/Admission MC PRN (12:00)
--- NOTE | 2017-05-12 17:21 | General Progress Note ---
Subjective - Review of Systems Subjective: Patient is seen and examined. Patient has minimal headache. Patient is currently on by mouth diet and eating fairly well. Patient is ambulatory. Patient is watching TV. Patient is already on the phone with her family. Patient speaks Japanese. tank tender is used to get further history. Patient denies any double reason, chest pain, shortness of breath, palpitation, dizziness, abdominal pain, nausea, vomiting, diarrhea, headache minimal, no seizure, no syncopal episode. Objective - Results Result Diagrams: 05/12/17 06:15 05/12/17 06:15 Recent Labs: Laboratory Last Values WBC 5.3 Th/cmm (4.8-10.8) D 05/12/17 06:15 RBC 3.92 Mil/cmm (3.80-5.10) 05/12/17 06:15 Hgb 10.6 gm/dL (11.7-15.5) L 05/12/17 06:15 Hct 32.1 % (35.0-45.0) L 05/12/17 06:15 MCV 81.9 fl (81-100) 05/12/17 06:15 MCH 27.0 pg (27.0-31.0) 05/12/17 06:15 MCHC Differential 33.0 pg (28.0-36.0) 05/12/17 06:15 RDW 14.8 % (11.5-20.0) 05/12/17 06:15 Plt Count 268 Th/cmm (150-400) 05/12/17 06:15 MPV 8.2 fl 05/12/17 06:15 Neutrophils % 45.3 % (40.0-80.0) 05/12/17 06:15 Lymphocytes % 40.3 % (20.0-50.0) 05/12/17 06:15 Monocytes % 9.9 % (2.0-10.0) 05/12/17 06:15 Eosinophils % 3.8 % (0.0-5.0) 05/12/17 06:15 Basophils % 0.7 % (0.0-2.0) 05/12/17 06:15 PT 9.7 SECONDS (9.5-11.5) 05/11/17 11:00 INR 0.93 (0.5-1.4) 05/11/17 11:00 PTT (Actin FS) 22.5 SECONDS (26.0-38.0) L 05/11/17 11:00 Sodium 135 mEq/L (136-145) L 05/12/17 06:15 Potassium 3.9 mEq/L (3.5-5.1) 05/12/17 06:15 Chloride 104 mEq/L (98-107) 05/12/17 06:15 Carbon Dioxide 28.4 mEq/L (21.0-31.0) 05/12/17 06:15 Anion Gap 6.5 (7.0-16.0) L 05/12/17 06:15 BUN 15 mg/dL (7-25) 05/12/17 06:15 Creatinine 0.6 mg/dL (0.6-1.2) 05/12/17 06:15 Est GFR ( Amer) > 60.0 ml/min (>90) 05/12/17 06:15 Est GFR (Non-Af Amer) > 60.0 ml/min 05/12/17 06:15 BUN/Creatinine Ratio 25.0 05/12/17 06:15 Glucose 303 mg/dL (70-105) H 05/12/17 06:15 POC Glucose 204 MG/DL (70 - 105) H 05/12/17 16:24 Hemoglobin A1c % 9.8 % (4.0-6.0) H 05/11/17 11:00 Calcium 8.9 mg/dL (8.6-10.3) 05/12/17 06:15 Total Bilirubin 0.3 mg/dL (0.3-1.0) 05/12/17 06:15 AST 11 U/L (13-39) L 05/12/17 06:15 ALT 12 U/L (7-52) 05/12/17 06:15 Alkaline Phosphatase 46 U/L (34-104) 05/12/17 06:15 Troponin I 0.01 ng/mL (0.01-0.05) 05/11/17 11:00 Total Protein 5.9 gm/dL (6.0-8.3) L 05/12/17 06:15 Albumin 3.5 gm/dL (3.7-5.3) L 05/12/17 06:15 Globulin 2.4 gm/dL 05/12/17 06:15 Albumin/Globulin Ratio 1.5 (1.0-1.8) 05/12/17 06:15 Triglycerides 100 mg/dL (<150) 05/11/17 11:00 Cholesterol 233 mg/dL (<200) H 05/11/17 11:00 LDL Cholesterol Direct 165 mg/dL (75-193) 05/11/17 11:00 HDL Cholesterol 57 mg/dL (23-92) 05/11/17 11:00 TSH 0.56 uIU/ml (0.34-5.60) 05/11/17 11:00 Urine Source CLEAN C 05/11/17 10:45 Urine Color YELLOW 05/11/17 10:45 Urine Clarity SL. CLOUDY (CLEAR) 05/11/17 10:45 Urine pH 7.0 (4.6 - 8.0) 05/11/17 10:45 Ur Specific [place] 1.020 (1.005-1.030) 05/11/17 10:45 Urine Protein 100 mg/dL (NEGATIVE) H 05/11/17 10:45 Urine Glucose (UA) >=1000 mg/dL (NEGATIVE) H 05/11/17 10:45 Urine Ketones TRACE mg/dL (NEGATIVE) 05/11/17 10:45 Urine Blood NEGATIVE (NEGATIVE) 05/11/17 10:45 Urine Nitrate NEGATIVE (NEGATIVE) 05/11/17 10:45 Urine Bilirubin NEGATIVE (NEGATIVE) 05/11/17 10:45 Urine Urobilinogen 0.2 E.U./dL (0.2 - 1.0) 05/11/17 10:45 Ur Leukocyte Esterase NEGATIVE (NEGATIVE) 05/11/17 10:45 Urine RBC 0-1 /hpf (0-5) 05/11/17 10:45 Urine WBC 0-2 /hpf (0-5) 05/11/17 10:45 Ur Epithelial Cells FEW /lpf (FEW) 05/11/17 10:45 Urine Bacteria OCCASIONAL /hpf (NONE SEEN) 05/11/17 10:45 Urine Test NEGATIVE 05/11/17 10:45 RPR NONREACTIVE (NONREACTIVE) 05/11/17 11:00 - Physical Exam Vitals and I&O: Vital Signs Temp 97.2 F 05/12/17 12:00 Pulse 71 05/12/17 12:00 Resp 18 05/12/17 12:00 BP 125/83 05/12/17 12:00 Pulse Ox 98 05/12/17 12:00 Intake & Output 05/11/17 05/12/17 05/12/17 18:59 06:59 18:59 Intake Total 200 400 Balance 200 400 Weight (lbs) 97.522 kg 97.267 kg Intake: Intake, IV Amount 200 Piperacillin Sodium/ 200 Tazobact 4.5 gm In Sodium Chloride 0.9% 100 ml @ 100 mls/hr IV Q8HR [facility] Rx #:[id number] Oral 400 Other: # Voids 4 # Bowel Movements 1 Active Medications: Current Medications Acetaminophen/Butalbital/Caffeine (Fioricet) 1 tab PO Q6H PRN PRN Reason: Headache Stop: 07/10/17 18:28 Last Admin: 05/12/17 14:14 Dose: 1 tab Glipizide (Glucotrol) 10 mg PO BIDAC [facility] Stop: 07/11/17 07:29 Last Admin: 05/12/17 17:04 Dose: 10 mg Heparin Sodium (Porcine) (Heparin) 5,000 units SUBQ Q12HR [facility] Stop: 07/11/17 20:59 Sodium Chloride (Nacl 0.9%) 1,000 mls @ 100 mls/hr IV .Q10H [facility] Stop: 07/10/17 19:36 Last Admin: 05/11/17 20:24 Dose: 100 mls/hr Piperacillin Sod/Tazobactam (Sod 4.5 gm/ Sodium Chloride) 100 mls @ 100 mls/hr IV Q8HR [facility] Stop: 07/10/17 20:59 Last Admin: 05/12/17 12:34 Dose: 100 mls/hr Insulin Aspart (Novolog Insulin Sliding Scale) 100 units SUBQ ACHS [facility] PRN Reason: Protocol Stop: 07/10/17 19:36 Last Admin: 05/12/17 17:05 Dose: 4 units Lisinopril (Zestril) 5 mg PO DAILY [facility] Stop: 07/11/17 08:59 Last Admin: 05/12/17 08:49 Dose: 5 mg Lorazepam (Ativan) 1 mg PO Q6H PRN; Protocol PRN Reason: Anxiety/Agitation Stop: 07/10/17 18:30 Metformin HCl (Glucophage) 1,000 mg PO BIDWM [facility] Stop: 07/11/17 07:59 Last Admin: 05/12/17 08:50 Dose: Not Given Miscellaneous (Vte Chemical Prophylaxis Screen/ Admission) 1 ea [facility] PRN PRN PRN Reason: PROTOCOL Stop: 07/11/17 11:59 Morphine Sulfate (Morphine) 2 mg IVP Q4HR PRN PRN Reason: Severe Pain Stop: 07/11/17 00:41 Topiramate (Topamax) 25 mg PO BID [facility] Stop: 07/11/17 08:59 Last Admin: 05/12/17 17:04 Dose: 25 mg General: Alert, Oriented x3, No acute distress HEENT: Atraumatic, PERRLA, EOMI, Mucous membr. moist/pink Neck: Supple Cardiovascular: Regular rate, Normal S1, Normal S2 Lungs: Clear to auscultation, Normal air movement Abdomen: Bowel sounds, Soft, Obese Extremities: Other (no edema, no cyanosis, no clubbing) Neurological: Normal gait, Normal speech, Strength at 5/5 X4 ext, Normal tone, Sensation intact, Cranial nerves 3-12 NL, Reflexes 2+ Assessment/Plan - Problem List Patient Problems: All Active Problems Poorly controlled type 2 diabetes mellitus (Acute) E11.65 Tension headache (Acute) G44.209 - Assessment Assessment: Intractable headache most likely migraine improved significantly with the Topamax and Imitrex. Uncontrolled diabetes mellitus Hypertension Abnormal CT abdomen and pelvis finding without GI and symptoms. Obesity. Rule out subclinical depression - Plan Plan: Since patient is ambulatory in no new symptoms. patient's symptoms of headache is completely well controlled with currently prescribed medications patient is discharged to home with outpatient follow-up with his primary care M.D. in one week. I have used tank tender to discuss with her about her symptomatology and etiology of her headache. Since patient has no GI or symptoms and tolerating by mouth well patient's can have follow-up with primary care M.D. for her abdominal CT findings. Patient has been advised to monitor blood sugar and control her diet and exercise and take her diabetes medicine as prescribed , patient's has fully understood . Discharge instructions are discussed with ama via molder foam rubber. discharge summary is dictated.
--- NOTE | 2017-05-12 20:48 | Operative Report ---
DATE OF SURGERY: 05/12/2017 INDICATIONS: A 41-year-old female. PRINCIPAL DIAGNOSES: 1. Intractable headache secondary to migraine. 2. Uncontrolled diabetes mellitus. 3. Abnormal CT of the abdomen and pelvis with no gastrointestinal or genitourinary symptoms. Further workup to be done as an outpatient. 4. Obesity. 5. Hypertension. 6. Possible underlying depression. BRIEF STATEMENT FOR THE REASON FOR ADMISSION: A 41-year-old female. She is going in and out of the hospital multiple times for abdominal pain and headache. The patient was seen by ____ MD and I was advised to admit the patient for further treatment. Please refer to my dictated medical H and P for further information. HOSPITAL COURSE: The patient was admitted to med/surg floor. The patient was given IV fluid. General Surgery consultation was requested. According to the general surgeon, the patient does not need any surgical intervention since patient has no GI/ symptoms and tolerating p.o., fairly well. The patient's diabetes was managed appropriately. The patient was given Imitrex along with p.r.n. Fioricet tablet, which was holding the patient's headache. I did have a discussion with the patient via an technology infusion specialist about her underlying diagnosis. I suggested the patient should take Topamax 25 mg twice a day all the time and it may take p.r.n. Imitrex for headache and see how that works and the patient should see primary special education teacher. The patient must see her primary special education teacher for followup of the abnormal CT abdomen and pelvis as well. The patient is discharged to home in stable condition with a new prescription for migraine headache. Other home medicines are reconciled. JOB# [id number]
== END 2017-05-12 19:00 | disposition home or self-care (01) | DRG 54 ==
LOC: ER 10:17 → MSI 12:01
PROVIDERS: ADMIT Internal Medicine; ATTEND Internal Medicine
DX: G43.919 Migraine, unspecified, intractable, without status migrainosus (principal); Z68.41 Body mass index [BMI] 40.0-44.9, adult; I10 Essential (primary) hypertension; E11.9 Type 2 diabetes mellitus without complications; D64.9 Anemia, unspecified; F32.9 Major depressive disorder, single episode, unspecified; K57.90 Diverticulosis of intestine, part unspecified, without perforation or abscess without bleeding; R91.1 Solitary pulmonary nodule; R10.31 Right lower quadrant pain; E66.9 Obesity, unspecified; Z83.3 Family history of diabetes mellitus; Z80.9 Family history of malignant neoplasm, unspecified; Z79.84 Long term (current) use of oral hypoglycemic drugs
CPT/HCPCS: 36415-UA; 70450-TC; 71010-TC; 7610; 80053-TC; 80061-TC; 81001-TC; 81025-TC; 82948-90; 83036-90; 84443-TC; 84484-TC; 85025-TC; 85610-TC; 85730-TC; 86592-TC; J0696; J1815; J2543; J3030; J7030; J7040; Z7610

== ENCOUNTER 2017-07-01 18:24 | Emergency (ER) | payer MEDICAID ==
--- NOTE | 2017-07-01 20:36 | ED Physician Chart ---
ED Chief Complaint/HPI - Patient Information Date Seen:: 07/01/17 Time Seen:: 18:40 Chief Complaint:: Headache History of Present Illness:: Pt is Persian speaking. Interpretation is provided by her daughter Elizabeth per pt' s request. Pt was brought in by private auto because of recurrent headache since about 6 pm today. Pt has h/o migraine MORENO and has been followed by Dr. Galo Vaughan. Pt had full work up including head CT that was normal according to pt. Pt has had bifrontal bandlike MORENO extending to back of skull since about 6 am today. No N/V/D. No visual changes in terms of blurry vision or diplopia. No weakness or numbness. No ataxia. No definite precipitating, aggravating, or relieving factors. No fever. Allergies:: Allergies Allergy/AdvReac Type Severity Reaction Status Date / Time No Known Allergies Allergy Verified 07/01/17 18:43 Vitals:: Vital Signs - 8 hr 07/01/17 18:52 Temp 98.5 F HR 77 RR 20 BP 151/91 O2 Sat % 97 Historian:: Patient Family MD/PCP:: Dr. Galo Vaughan. LMP:: 06/27/17 Review:: Nurse's Note Reviewed ED Review of Systems - Review of Systems General/Constitutional: No fever, No weight loss, No weakness, No edema, No loss of appetite Skin: No skin lesions, No rash, No bruising Head: Headache, No light-headedness Eyes: No loss of vision, No pain, No diplopia ENT: No earache, No nasal drainage, No sore throat, No tinnitus Neck: No neck pain, No swelling, No thyromegaly, No stiffness, No mass noted Cardio Vascular: No chest pain, No palpitations, No edema Pulmonary: No SOB, No cough, No wheezing GI: No nausea, No vomiting, No diarrhea, No pain G/U: No dysuria, No frequency, No hematuria Group Chief Operator: No vaginal discharge, No abnormal vaginal bleed Musculoskeletal: No bone or joint pain, No back pain, No muscle pain Endocrine: No polyuria, No polydipsia Psychiatric: No prior psych history Hematopoietic: No bruising, No lymphadenopathy Allergic/Immuno: No urticaria, No angioedema Neurological: No syncope, No focal symptoms, No weakness, No paresthesia, Headache, No seizure, No dizziness, No confusion, No vertigo ED Past Medical History - Past Medical History Past Medical History: DM, Asthma/COPD Family History: Diabetes Melitus (mother), Cancer (father) Social History: Non Smoker, No Alcohol, No Drug Use, , Other (lives with her ) Employment:: unemployed. Surgical History: (x 2 with last one 2003) Psychiatricy History: None Medication: Reviewed Family Medical History - Family Member Mother History Unknown: Yes Ethnicity: Living Status: Still Living Hx Family Cancer: No Hx Family Coronary Artery Disease: No Hx Family Congestive Heart Failure: No Hx Family Hypertension: No Hx Family Stroke: No Hx Family Diabetes: Yes Hx Family Seizures: No Hx Family Dementia: No Hx Family AIDS: No Hx Family HIV: No Hx Family COPD: No Hx Family Hepatitis: No Hx Family Psychiatric Problems: No Hx Family Tuberculosis: No Father History Unknown: Yes Ethnicity: Living Status: Hx Family Cancer: Yes Hx Family Coronary Artery Disease: No Hx Family Congestive Heart Failure: No Hx Family Hypertension: No Hx Family Stroke: No Hx Family Diabetes: No Hx Family Seizures: No Hx Family Dementia: No Hx Family AIDS: No Hx Family HIV: No Hx Family COPD: No Hx Family Hepatitis: No Hx Family Psychiatric Problems: No Hx Family Tuberculosis: No ED Physical Exam - Physical Examination General/Constitutional: Awake, Well-developed, well-nourished, Alert, No distress, GCS 15, Non-toxic appearing, Ambulatory Other Gen/Cons comments:: Breathes comfortably, speaks clearly, interacts normally and ambulates without difficulty. Head: Atraumatic Eyes: Lids, conjuctiva normal, PERRL, EOMI Skin: Nl inspection, No rash, No skin lesions, No ecchymosis, Well hydrated, No lymphadenopathy ENMT: External ears, nose nl, TM canals nl, Nasal exam nl, Lips, teeth, gums nl , Oropharynx nl Neck: Nontender, Full ROM w/o pain, No JVD, No nuchal rigidity, No mass, No stridor Respiratory: Nl effort/Exclusion, Clear to Auscultation, No Wheeze/Rhonchi/Rales Cardio Vascular: RRR, No murmur, gallop, rubs GI: No tenderness/rebounding/guarding, No organomegaly, Normal BS's, Nondistended Other GI comments:: Obese but soft. Extremities: No edema Neuro/Psych: Alert/oriented (oriented x 3), DTR's symmetric, Normal sensory exam , Normal motor strength, Judgement/insight normal, Mood normal, Normal gait, No focal deficits Other Neuro/Psych comments:: CN II to XII are grossly intact. Cerebellar exam (F to N, ALEX): normal ED Labs/Radiology/EKG Results - Lab Results Results: Laboratory Tests 07/01/17 19:39 POC Glucose 173 H ED Septic Shock - . Is Septic Shock (SBP<90, OR Lactate>4 mmol\L) present?: No - <6hrs of presentation: Vital Signs: Vital Signs - 8 hr 07/01/17 18:52 Temp 98.5 F HR 77 RR 20 BP 151/91 O2 Sat % 97 ED Reassessment (Disposition) - Reassessment Reassessment:: 2158 Pt has been repeatedly evaluated. Pt feels much better, and her MORENO essentially has resolved. Pt requests to go home now and does not want further observation/management in hospital. Aftercare instructions have been given. Interpretation by her placido Johnson per pt's request. Reassessment Condition:: Improved - Diagnosis Diagnosis:: Tension MORENO Diabetes mellitus, stable. Accuchek 173. - Aftercare/Follow up Instructions Aftercare/Follow-Up Instructions:: Refer to Discharge Instructions Notes:: Bedrest for today. MORENO instructions given. Avid neck bending activities. May take Motrin 200 mg tab 3-4 tabs po q8h prn, not to take first dose at least 6 hours after Toradol was given here. F/U with PCP Dr. Galo Vaughan in one day for recheck. sooner if further qeustions/ problem. Medication Prescribed:: None - Patient Disposition Discharge/Transfer:: Home Time:: 10:02 Condition at Disposition:: Stable, Improved ED Discharge Plan - Patient Disposition Admit/Discharge/Transfer: PT DISCHARGED HOME Condition at Disposition: Improved Instructions: Tension Headache, [id number] Additional Instructions: Follow up with your primary care provider and return to ED if symptoms worsen. May take over the counter motrin for pain relief
== END 2017-07-01 22:15 | disposition home or self-care (01) ==
LOC: ER 18:24
DX: G44.209 Tension-type headache, unspecified, not intractable (principal); E11.9 Type 2 diabetes mellitus without complications; J45.909 Unspecified asthma, uncomplicated; J44.1 Chronic obstructive pulmonary disease with (acute) exacerbation
CPT/HCPCS: 99283; 96372; 36416; 82948; J1885; Z7502

== ENCOUNTER 2017-07-02 13:13 | Emergency (ER) | payer MEDICAID ==
--- NOTE | 2017-07-02 13:32 | ED Physician Chart ---
ED Chief Complaint/HPI - Patient Information Date Seen:: 07/02/17 Time Seen:: 13:30 Chief Complaint:: Headache History of Present Illness:: 41 yo female has long history of headache worsened since [address] head 1 month ago was negative. The current episode of headache developed 1 day ago, bilateral headache worse on the left side last night and now the right side become worse. Nausea without vomiting. With photosensitivity. Neck pain but no rigidity. The headache is associated with menstrual periods. Her most recent period started 06/27/17, finished on 06/29/17. She usually has heavy menstrual bleeding. Allergies:: Allergies Allergy/AdvReac Type Severity Reaction Status Date / Time No Known Allergies Allergy Verified 07/01/17 18:43 ED Review of Systems - Review of Systems General/Constitutional: No fever, No chills Skin: No skin lesions Head: Headache Eyes: No loss of vision ENT: No earache Neck: Neck pain Cardio Vascular: No chest pain Pulmonary: No SOB GI: Nausea, No vomiting Psychiatric: No prior psych history ED Past Medical History - Past Medical History Past Medical History: DM, Asthma/COPD Family History: Diabetes Melitus, Cancer Social History: Non Smoker, No Alcohol, No Drug Use Surgical History: (x 2) Family Medical History - Family Member Mother History Unknown: Yes Ethnicity: Living Status: Still Living Hx Family Cancer: No Hx Family Coronary Artery Disease: No Hx Family Congestive Heart Failure: No Hx Family Hypertension: No Hx Family Stroke: No Hx Family Diabetes: Yes Hx Family Seizures: No Hx Family Dementia: No Hx Family AIDS: No Hx Family HIV: No Hx Family COPD: No Hx Family Hepatitis: No Hx Family Psychiatric Problems: No Hx Family Tuberculosis: No Father History Unknown: Yes Ethnicity: Living Status: Hx Family Cancer: Yes Hx Family Coronary Artery Disease: No Hx Family Congestive Heart Failure: No Hx Family Hypertension: No Hx Family Stroke: No Hx Family Diabetes: No Hx Family Seizures: No Hx Family Dementia: No Hx Family AIDS: No Hx Family HIV: No Hx Family COPD: No Hx Family Hepatitis: No Hx Family Psychiatric Problems: No Hx Family Tuberculosis: No ED Physical Exam - Physical Examination General/Constitutional: Awake, Alert Head: Atraumatic Eyes: PERRL, EOMI Skin: No skin lesions ENMT: External ears, nose nl Neck: No nuchal rigidity Respiratory: Clear to Auscultation, No Wheeze/Rhonchi/Rales Cardio Vascular: RRR, No murmur, gallop, rubs, NL S1 S2 GI: No tenderness/rebounding/guarding Extremities: Full ROM, normal strength in all extremities Neuro/Psych: No focal deficits ED Assessment - Assessment General Assessment: 41 yo female has migraine headache for 2 days. Anemia due to menstrual blood loss. Critical Care Time: 50 Excludes all billable procedures: Yes This condition life threatening/high prob of deterioration: No Assessment/Comments:: CBC, CMP, UA NS 1L IV bolus Imitrex 50mg po x 1 Metoclopramide 10mg IVP x 1 ED Septic Shock - . Is Septic Shock (SBP<90, OR Lactate>4 mmol\L) present?: No ED Reassessment (Disposition) - Reassessment Reassessment Condition:: Improved - Aftercare/Follow up Instructions Aftercare/Follow-Up Instructions:: Counseled pt regarding lab results/diagnosis & need follow up, Refer to Discharge Instructions - Patient Disposition Discharge/Transfer:: Home ED Discharge Plan - Patient Disposition Prescriptions: SUMAtriptan Succinate [Imitrex] 50 mg PO Q8HR PRN 1 Days tab PRN Reason: Headache
[2017-07-02] MEDS ORDERED: Sodium Chloride 0.9% 1,000 ML IV ONE (13:44)
[2017-07-02 14:00] LABS: % BASOPHILS 0.2 % (0.0-2.0); % EOSINOPHILS 3.6 % (0.0-5.0); % LYMPHOCYTES 33.4 % (20.0-50.0); % MONOCYTES 8.2 % (2.0-10.0); % NEUTROPHILS 54.6 % (40.0-80.0); HEMOGLOBIN 11.6 gm/dL (12-16); MEAN CELL VOLUME 81.4 fl (81-100); MEAN CORPUSCULAR HEMOGLOBIN 26.4 pg (27.0-31.0); MEAN CORPUSCULAR HGB CONC 32.4 pg (28.0-36.0); MEAN PLATELET VOLUME 7.6 fl; NEUTROPHILE ABSOLUTE 3.8 Th/cmm (1.8-8.0); PLATELET COUNT 277 Th/cmm (150-400); RED BLOOD COUNT 4.39 Mil/cmm (3.80-5.10); RED CELL DISTRIBUTION WIDTH 15.8 % (11.5-20.0)
[2017-07-02 14:04] LABS: HEMATOCRIT 35.7 % (41.0-60); WHITE BLOOD COUNT 6.7 Th/cmm (4.8-10.8)
[2017-07-02 14:17] LABS: ALB/GLOB RATIO 1.5 (1.0-1.8); ALKALINE PHOSPHATASE 56 U/L (34-104); ANION GAP 7.9 (7.0-16.0); BILIRUBIN,TOTAL 0.2 mg/dL (0.3-1.0); BUN - UREA NITROGEN 13 mg/dL (7-25); BUN/CREATININE RATIO 21.7; CALCIUM SERUM 9.1 mg/dL (8.6-10.3); CARBON DIOXIDE 26.8 mEq/L (21.0-31.0); CHLORIDE 104 mEq/L (98-107); CREATININE - SERUM 0.6 mg/dL (0.6-1.2); GLUCOSE 109 mg/dL (70-105); POTASSIUM SERUM 3.7 mEq/L (3.5-5.1); SGOT 12 U/L (13-39); SGPT/ALT 10 U/L (7-52); SODIUM SERUM 135 mEq/L (136-145)
[2017-07-02] MEDS ORDERED: Metoclopramide 5 mg/mL 2mL Vial IVP STA (14:58)
[2017-07-02 15:02] LABS: URINE BILIRUBIN NEGATIVE (NEGATIVE); URINE BLOOD NEGATIVE (NEGATIVE); URINE GLUCOSE (UA) NEGATIVE (NEGATIVE); URINE KETONE NEGATIVE (NEGATIVE); URINE PROTEIN NEGATIVE (NEGATIVE); URINE UROBILINOGEN 0.2 E.U./dL (0.2 - 1.0)
[2017-07-02] MEDS ORDERED: Metoclopramide 5 mg/mL 2mL Vial ONE (15:10)
[2017-07-02 15:22] LABS: URINE COLOR YELLOW
[2017-07-02 15:23] LABS: URINE BACTERIA FEW /hpf (NONE SEEN); URINE EPITHELIAL CELLS FEW /lpf (FEW); URINE RBC NONE SEEN /hpf (0-5); URINE WBC 0-2 /hpf (0-5)
== END 2017-07-02 16:33 | disposition home or self-care (01) ==
LOC: ER 13:13
DX: G43.909 Migraine, unspecified, not intractable, without status migrainosus (principal); D50.0 Iron deficiency anemia secondary to blood loss (chronic); E11.9 Type 2 diabetes mellitus without complications; J45.909 Unspecified asthma, uncomplicated; J44.1 Chronic obstructive pulmonary disease with (acute) exacerbation
CPT/HCPCS: 99291; 96374; 36415; 85025; 81001; 80053; J2765; J7030; Z7502